=== PATIENT | female | born 1980 | race Caucasian/White ===

== ENCOUNTER 2018-03-08 15:06 | Emergency (ER) | payer OTHER ==
[~2018-03-08] VITALS: Ht 167.6 cm; Wt 95.3 kg
[2018-03-08 15:23] VITALS: BP 155/89
[2018-03-08] MEDS ORDERED: KETOROLAC TROMETH 60MG/2ML VIAL IM ONE (17:30)
[2018-03-08] MEDS ORDERED: ALPRAZolam 0.5 MG TAB PO ONE (17:30)
== END 2018-03-08 19:04 | disposition home or self-care (01) ==
LOC: ER 15:06
DX: S46.912A Strain of unspecified muscle, fascia and tendon at shoulder and upper arm level, left arm, initial encounter (principal); S39.012A Strain of muscle, fascia and tendon of lower back, initial encounter; Z88.8 Allergy status to other drugs, medicaments and biological substances; X50.0XXA Overexertion from strenuous movement or load, initial encounter; Y93.89 Activity, other specified; Y99.8 Other external cause status; Y92.89 Other specified places as the place of occurrence of the external cause
CPT/HCPCS: 72100; 73030; 96372; 99284; J1885